=== PATIENT | female | born 1955 | race Hispanic/Latino ===

== ENCOUNTER 2022-05-12 07:28 | Day surgery (SDC) | payer MEDICARE ==
[2022-05-08 10:08] LABS: BASOPHILS % (AUTO) 0.5 % (0.0-5.0); HEMATOCRIT 39.1 % (36-48); LYMPHOCYTES % (AUTO) 23.8 % (21.0-51.0); MEAN CORPUSCULAR HEMOGLOBIN 30.8 pg (27.0-33.0); MEAN CORPUSCULAR VOLUME 90.5 fL (79-99); MONOCYTES % (AUTO) 6.4 % (3.0-13.0); NEUTROPHILS % (AUTO) 67.8 % (40.0-77.0); PLATELET COUNT (AUTO) 325 K/uL (130-400); RED BLOOD CELL COUNT(AUTO) 4.32 MIL/uL (4.00-5.50); WHITE BLOOD COUNT (AUTO) 6.1 K/uL (4.8-10.8)
[2022-05-08 10:17] LABS: PROTHROMBIN TIME 10.9 SEC (9.6-11.6)
[2022-05-08 10:18] LABS: PARTIAL THROMBOPLASTIN TIME 26.2 SEC (26.3-35.5)
[2022-05-08 10:21] LABS: ALBUMIN 4.1 g/dL (3.5-5.0); CREATININE 0.6 mg/dL (0.5-1.5); POTASSIUM 4.2 mmol/L (3.5-5.1); TOTAL PROTEIN, SERUM 7.6 g/dL (6.0-8.3)
[2022-05-08 10:24] LABS: APPEARANCE,URINE CLEAR (CLEAR); BILIRUBIN,URINE NEGATIVE (NEGATIVE); COLOR,URINE LIGHT-YELLOW (YELLOW); GLUCOSE, URINE (UA) 50 mg/dL (NEGATIVE); KETONES,URINE NEGATIVE (NEGATIVE); LEUKOCYTE ESTERASE ,URINE NEGATIVE Leu/uL (NEGATIVE); NITRATE,URINE NEGATIVE (NEGATIVE); OCCULT BLOOD,URINE NEGATIVE (NEGATIVE); PH,URINE 5.5 (5.0-8.0); PROTEIN,URINE NEGATIVE (NEGATIVE); UROBILINOGEN,URINE 0.2 mg/dL (0.2-1.0)
[2022-05-08 10:35] LABS: MUCUS,URINE RARE LPF (None Seen); RBC,URINE 0-1 /HPF (0-1); SQUAMOUS EPITHELIAL CELL,UR RARE /HPF (0-2); WBC,URINE 0-1 /HPF (0-1)
[2022-05-09 08:59] VITALS: BP 156/62
[2022-05-12] VITALS (19 sets, daily range): BP systolic 116–163; BP diastolic 40–61
[~2022-05-12] VITALS: Ht 161.3 cm; Wt 51.4 kg
[~2022-05-12 07:28] MED LIST: LISI5TAB21 PO; METF-444 PO; SEMA2PEN SQ
[2022-05-12] MEDS ORDERED: LACTATED RINGERS 1000ML 1,000 ML IV ONE (08:18)
[2022-05-12] MEDS ORDERED: CEFAZOLIN SODIUM 1 GM VIAL ONE (08:18)
[2022-05-12] MEDS ORDERED: ATOR20TA65 PO (08:53)
[2022-05-12] MEDS ORDERED: BUPIVACAINE/PF 0.25% 30ML VIAL IJ ONE (10:16)
[2022-05-12] MEDS ORDERED: LIDOCAINE PF 100MG/5ML (2%) SYRINGE 5ML ONE ×2 (10:30→10:33)
[2022-05-12] MEDS ORDERED: DEXAMETHASONE SOD PHOSPHATE 10MG/ML 1ML VIAL ONE (10:30)
[2022-05-12] MEDS ORDERED: NEOSTIGMINE 5MG/5ML SYR IV ONE (10:30)
[2022-05-12] MEDS ORDERED: FENTANYL CITRATE PF 50 MCG/1 ML 2ML VIAL ONE (10:30)
[2022-05-12] MEDS ORDERED: SUCCINYLCHOLINE CHLORIDE 20 MG/ML 10 ML VIAL ONE ×2 (10:30→10:31)
[2022-05-12] MEDS ORDERED: GLYCOPYRROLATE 1 MG/5 ML SYRINGE ONE (10:30)
[2022-05-12] MEDS ORDERED: ROCURONIUM 10MG/1ML SYR 10 MG/ML ML ONE (10:30)
[2022-05-12] MEDS ORDERED: CEFAZOLIN SODIUM 2 GM VIAL IV ONE (10:30)
[2022-05-12] MEDS ORDERED: ONDANSETRON 4MG INJ ONE ×2 (10:30→11:39)
[2022-05-12] MEDS ORDERED: PROPOFOL 10 MG/ML 20ML VIAL IV ONE (10:33)
[2022-05-12] MEDS ORDERED: MIDAZOLAM HCL 1 MG/ML 5ML VIAL ONE (10:35)
[2022-05-12] MEDS ORDERED: KETOROLAC 30MG VIAL (30MG/ML) ONE (11:39)
[2022-05-12] MEDS ORDERED: MEPERIDINE-PF 25 MG/ML SYG ONE ×2 (11:40→12:08)
== END 2022-05-12 13:20 | disposition home or self-care (01) ==
LOC: DAH 07:28
PROVIDERS: ATTEND Student in an Organized Health Care Education/Training Program
DX: K80.10 Calculus of gallbladder with chronic cholecystitis without obstruction (principal); I10 Essential (primary) hypertension; E11.43 Type 2 diabetes mellitus with diabetic autonomic (poly)neuropathy; K31.84 Gastroparesis; E66.3 Overweight; E78.5 Hyperlipidemia, unspecified; Z88.6 Allergy status to analgesic agent; Z88.2 Allergy status to sulfonamides; Z79.84 Long term (current) use of oral hypoglycemic drugs; Z98.49 Cataract extraction status, unspecified eye; Z79.01 Long term (current) use of anticoagulants; Z98.890 Other specified postprocedural states; Z79.899 Other long term (current) drug therapy; Z68.22 Body mass index [BMI] 22.0-22.9, adult
CPT/HCPCS: 80053; 85025; 85610; 85730; 87426; 81001; 36415; 71045; 93005; 47562; 82948; A6260; A4663; A6207; J7030; J0690 ×2; J7120; J3010; J3490 ×2; J1100; J2710; J0330 ×2; J2001 ×2; J2250; J2704; J2405 ×2; J1885; J2175 ×2; A6206; C1769 ×3; A4649 ×3; G0168; A4215; A4223; A4222; A4221; A4600

== ENCOUNTER → 2024-04-19 | Outpatient (CLI) | payer OTHER ==
[~2024-04-19] MED LIST changes: +ATOR20TA65 PO
== END | disposition home or self-care (01) ==
LOC: RAH 09:26
PROVIDERS: ATTEND Internal Medicine
DX: R10.9 Unspecified abdominal pain (principal); Z90.49 Acquired absence of other specified parts of digestive tract
CPT/HCPCS: 76700

== ENCOUNTER 2024-10-08 15:01 | Emergency (ER) | payer OTHER ==
[~2024-10-08] VITALS: Ht 160 cm; Wt 54.4 kg
[2024-10-08 15:14] VITALS: TEMP 98.8
[2024-10-08] MEDS: ORPHENADRINE 60MG/2ML IM ONE (17:00)
[2024-10-08] MEDS: ketOROlac 30MG VIAL (30MG/ML) IM ONE (17:00)
--- NOTE | 2024-10-08 17:25 | EKG ---
[facility] Test Date: 2024-10-08 Test Time: 15:25:11 Pat Name: TATI GATICA Department: ED Room: Gender: F Inspector General: [id number] : 1955 Requested By: CHRISTIAN GONZALEZ Order Number: [id number] Reading MD: Neto Kilgore Measurements Intervals [place] Rate: 79 P: 47 NE: 141 QRS: -6 QRSD: 78 T: 49 QT: 351 QTc: 404 Interpretive Statements Sinus rhythm Probable left atrial enlargement Low voltage, precordial leads Compared to ECG 05/08/2022 08:48:14 Low QRS voltage now present Electronically Signed On 10-09-2024 14:56:15 SUPERVISOR CALIBRATION by Neto Kilgore Please click the below link to view image of tracing.
[2024-10-08 17:31] LABS: BASOPHILS # (AUTO) 0.06 K/uL (0.00-0.20); BASOPHILS % (AUTO) 0.5 % (0.0-5.0); EOSINOPHILS # (AUTO) 0.07 K/uL (0.00-0.70); EOSINOPHILS % (AUTO) 0.6 % (0.0-8.0); HEMATOCRIT 37.4 % (36-48); IMMATURE GRANULOCYTE ABSOLUTE 0.05 K/uL (0-1); LYMPHOCYTES # (AUTO) 1.5 K/uL (1.0-4.8); LYMPHOCYTES % (AUTO) 12.2 % (21.0-51.0); MEAN CORPUSCULAR HGB CONC 32.6 g/dL (32.0-36.0); MEAN CORPUSCULAR VOLUME 92.1 fL (79-99); MONOCYTES # (AUTO) 0.7 K/uL (0.1-1.0); MONOCYTES % (AUTO) 5.7 % (3.0-13.0); NEUTROPHILS # (AUTO) 10.1 K/uL (1.8-7.7); NEUTROPHILS % (AUTO) 80.6 % (40.0-77.0); PLATELET COUNT (AUTO) 310 K/uL (130-400); RED BLOOD CELL COUNT(AUTO) 4.06 MIL/uL (4.00-5.50); RED CELL DISTRIBUTION WIDTH 12.3 % (11.0-15.5); WHITE BLOOD COUNT (AUTO) 12.5 K/uL (4.8-10.8)
[2024-10-08 17:39] LABS: CREATININE 0.8 mg/dL (0.5-1.0); POTASSIUM 4.4 mmol/L (3.5-5.1)
--- NOTE | 2024-10-08 17:44 | ERN ---
General Chief Complaint: Back Pain-No Injury Stated Complaint: LEFT SHOULDER PAIN Source: patient History of Present Illness Initial Comments PATIENT IS A 68-YEAR-OLD FEMALE COMING IN TO BE EVALUATED FOR LEFT UPPER BACK PAIN. PATIENT STATES THAT THE PAIN BEGAN THREE DAYS AGO. HER HAS BEEN STATES THAT PATIENT HAS BEEN DOING SOME GARDENING PREVIOUSLY AND COULD BE ASSOCIATED WITH A IT. Allergies: Coded Allergies: codeine (Unverified Allergy, Unknown, 05/09/22) Uncoded Allergies: sulf 10 (Allergy, Unknown, 05/09/22) Home Meds Reported Medications Atorvastatin Calcium (Atorvastatin Calcium) 20 Mg Tablet, 20 MG PO HS, TAB 05/12/22 Lisinopril (Lisinopril) 5 Mg Tablet, 5 MG PO AM, TAB 05/09/22 Semaglutide (Ozempic) 2 Mg/0.75 Ml Pen.injctr, 2 MG SQ weekly 05/09/22 Metformin HCl (Metformin HCl) 500 Mg Tablet, 500 MG PO BID, TAB 05/09/22 Past Medical History Past Medical History: Diabetes-Type II Past Surgical History: Hysterectomy, Tonsillectomy, Cholecystectomy Surgical History Other: EYE, ROS Dictation CONSTITUTIONAL: NO CHILLS, NO FEVER, NO WEAKNESS, NO DIAPHORESIS, NO MALAISE. HEAD/FACE: NO SIGNS OF TRAUMA. EENT: NO EYE PAIN, NO BLURRED VISION, NO TEARING, NO DOUBLE VISION, NO EAR PAIN, NO EAR DISCHARGE, NO NOSE PAIN, NO NASAL CONGESTION, NO THROAT PAIN, NO THROAT SWELLING, NO MOUTH PAIN. RESPIRATORY: NO COUGH, NO ORTHOPNEA, NO SOB, NO STRIDOR, NO WHEEZING. CARDIOVASCULAR: NO CHEST PAIN, NO EDEMA, NO PALPITATIONS, NO SYNCOPE. GASTROINTESTINAL/ABDOMINAL: NO ABDOMINAL PAIN, NO CONSTIPATION, NO DIARRHEA, NO NAUSEA, NO VOMITING. GENITOURINARY: NO ABNORMAL DISCHARGE, NO DYSURIA, NO FREQUENT URINATION, NO HEMATURIA. NO COMPLAINTS OF PAIN IN THE GENITALS. MUSCULOSKELETAL: BACK PAIN, NO GOUT, NO JOINT PAIN, NO JOINT SWELLING, NO MUSCLE PAIN, NO MUSCLE STIFFNESS, NO NECK PAIN. INTEGUMENTARY: NO CHANGE IN COLOR, NO CHANGE IN HAIR/NAILS, NO DRYNESS, NO LESION, NO LUMPS, NO RASH. NEUROLOGICAL/PSYCH: NO ANXIETY, NOT DEPRESSED, NO EMOTIONAL PROBLEM, NO HEADACHE, NO NUMBNESS, NO PRE-EXISTING DEFICIT, NO HISTORY OF SEIZURES, NO TREMORS, NO WEAKNESS. HEMATOLOGIC/LYMPHATIC: NOT ANEMIC, NO HISTORY OF BLOOD CLOTS, NO APPARENT BLEEDING, NO BRUISING, GLANDS NOT SWOLLEN. ALL SYSTEMS NEGATIVE, EXCEPT NOTED. Physical Exam Physical Exam Dictation VITAL SIGNS: REVIEWED. GENERAL APPEARANCE: ALERT, ORIENTED X3, NO ACUTE DISTRESS, OBESE. HEAD AND FACE: NON-TRAUMATIC. EYES: PERRL, PINK CONJUNCTIVAS, EYELID NO TRAUMA, ANTERIOR CHAMBER CLEAR. EARS: PINNAS INTACT AND NO SIGNS OF TRAUMA OR ERYTHEMA. EAR CANALS CLEAR AND NO DISCHARGE. TMS NO ERYTHEMA. NOSE: NO DISCHARGE, NO BLEEDING. OROPHARYNX: MOUTH NORMAL, TEETH NO CARIES, TONGUE PINK. PHARYNX CLEAR, NO ERYTHEMA. TONSILS NO EXUDATES, NO ABSCESSES NOTED. MUCOUS MEMBRANE MOIST. NECK: SUPPLE, NON-TENDER, NO THYROMEGALY, NO MASSES, NO JVD, NO BRUITS. BREAST: DEFERRED. CHEST: NO TENDERNESS, NO CREPITUS, NO PARADOXICAL MOVEMENT, NO RETRACTIONS. LUNGS: CLEAR, WELL-VENTILATED, SYMMETRIC, NO RALES, NO WHEEZING, NO RHONCHI, NO STRIDOR, GOOD BREATH SOUNDS BILATERALLY. HEART: REGULAR RATE, REGULAR RHYTHM, NO MURMUR, NO GALLOPS. VASCULAR: NO PERIPHERAL EDEMA. ABDOMEN: SOFT, POSITIVE BOWEL SOUNDS, NONDISTENDED, NO GUARDING, NONTENDER, NO REBOUND, NO MASSES NO HEPATOMEGALY, NO SPLENOMEGALY, NO REINOSO'S SIGN, NO HERNIAS. RECTAL: DEFERRED. GENITAL: DEFERRED. NEUROLOGICAL: NORMAL SPEECH, GROSS MOTOR FUNCTION INTACT, GROSS SENSORY FUNCTION INTACT. MUSCULOSKELETAL: NECK NONTENDER, FULL RANGE OF MOTION, BACK NONTENDER, FULL RANGE OF MOTION. EXTREMITIES: NONTENDER, FULL RANGE OF MOTION. LEFT SUBSCAPULARIS MUSCLE TENDERNESS ON PALPATION, PALPATING THE SUBSCAPULARIS MUSCLE REPRODUCES THE PAIN. SKIN: COLOR PINK, DRY, NO TURGOR, NO RASH, NO LACERATIONS, NO ABRASIONS, NO CONTUSIONS. LYMPHATICS: DEFERRED. Results Laboratory and Microbiology Lab and Micro Result Laboratory Tests Test 10/08/24 16:37 White Blood Count 12.5 K/uL (4.8-10.8) H Red Blood Count 4.06 MIL/uL (4.00-5.50) Hemoglobin 12.2 g/dL (12.0-16.0) Hematocrit 37.4 % (36-48) Mean Corpuscular Volume 92.1 fL (79-99) Mean Corpuscular Hemoglobin 30.0 pg (27.0-33.0) Mean Corpuscular Hemoglobin Concent 32.6 g/dL (32.0-36.0) Red Cell Distribution Width 12.3 % (11.0-15.5) Platelet Count 310 K/uL (130-400) Mean Platelet Volume 9.9 fL (7.5-10.5) Immature Granulocyte % (Auto) 0.4 % (0-1) Neutrophils (%) (Auto) 80.6 % (40.0-77.0) H Lymphocytes (%) (Auto) 12.2 % (21.0-51.0) L Monocytes (%) (Auto) 5.7 % (3.0-13.0) Eosinophils (%) (Auto) 0.6 % (0.0-8.0) Basophils (%) (Auto) 0.5 % (0.0-5.0) Neutrophils # (Auto) 10.1 K/uL (1.8-7.7) H Lymphocytes # (Auto) 1.5 K/uL (1.0-4.8) Monocytes # (Auto) 0.7 K/uL (0.1-1.0) Eosinophils # (Auto) 0.07 K/uL (0.00-0.70) Basophils # (Auto) 0.06 K/uL (0.00-0.20) Absolute Immature Granulocyte (auto 0.05 K/uL (0-1) Nucleated Red Blood Cells 0.0 % (0.0-0.19) Sodium Level 137 mmol/L (136-145) Potassium Level 4.4 mmol/L (3.5-5.1) Chloride Level 100 mmol/L (101-111) L Carbon Dioxide Level 29 mmol/L (21-32) Blood Urea Nitrogen 22 mg/dL (7-18) H Creatinine 0.8 mg/dL (0.5-1.0) Glomerular Filtration Rate Calc 79 mL/min (>90) Random Glucose 147 mg/dL (70-105) H Total Calcium 9.1 mg/dL (8.5-10.1) Total Creatine Kinase 57 U/L (21-232) Troponin I High Sensitivity < 4 ng/L (4-50) L B-Type Natriuretic Peptide 15 pg/mL (0-100) Labs Reviewed?: Yes EKG/XRAY/US/CT/MRI EKG Comment 10/08/2024 TIME 3:25 P.M. VENTRICULAR RATE [address] WAVE ELEVATION OR DEPRESSION WA 141 X-RAY Comment [facility] [address] [place] [address] IMAGING REPORT Signed PATIENT: TATI GATICA MR#: [id number] : 1955 SEX: F AGE: 68 LOCATION: [facility] ORDER 26 STATUS: REG ER REPORT#: [id number] SERVICE 25 REASON: left mid back pain ORDERING PHYSICIAN: CHRISTIAN GONZALEZ PROCEDURE: CXR1VW - CHEST 1VW INDICATION: left mid back pain TECHNIQUE: CHEST 1VW COMPARISON: 05/08/2022 FINDINGS AND IMPRESSION: No acute consolidation or pleural effusion. Cardiac silhouette is within normal limits. Mild degenerative changes of the spine. The visualized upper abdomen appears unremarkable. DICTATED BY: MARINA DIOR MD DATE: 10/08/241752 ELECTRONICALLY SIGNED BY: MARINA DIOR MD DATE: 10/08/241755 [facility] MDM: DIFFERENTIAL DIAGNOSIS: SUBSCAPULARIS MUSCLE PAIN, MUSCLE STRAIN PATIENT IS A 68-YEAR-OLD FEMALE COMING IN TO BE EVALUATED FOR SUBSCAPULARIS MUSCLE PAIN. UPON EVALUATION CARDIAC WORKUP NEGATIVE FOR ACUTE FINDINGS. PATIENT RECEIVED SOME ANTISPASMODICS ANTI-INFLAMMATORY STATES SHE FEELS MUCH BETTER. PATIENT WILL BE DISCHARGED IN STABLE CONDITION WITH A DIAGNOSIS OF SUBSCAPULARIS MUSCLE STRAIN ED Course Orders Procedure Category Date Status Time 12 Lead Ekg Tracing- EKG 10/08/24 Complete Technical 16:26 Cbc With Differential LAB 10/08/24 Complete 16:26 Basic Metabolic Panel LAB 10/08/24 Complete 16:26 B-Type Natriuretic LAB 10/08/24 Complete Peptide 16:26 Creatine Kinase, Total LAB 10/08/24 Complete 16:26 Troponin I High LAB 10/08/24 Complete Sensitivity 16:26 Chest 1vw RAD 10/08/24 Resulted 16:26 Orphenadrine Citrate PHA 10/08/24 Complete (Norflex) 17:00 Ketorolac PHA 10/08/24 Complete Tromethamine 30mg/Ml 17:00 Current Medications Medications (Trade) Dose Ordered Sig/Afua Route PRN Reason Start Time Stop Time Status Last Admin Dose Admin Ketorolac Tromethamine (toRADol) 30 mg ONCE ONCE IM 10/08/24 17:00 10/08/24 17:01 DC 10/08/24 17:00 Orphenadrine Citrate (Norflex) 60 mg ONCE ONCE IM 10/08/24 17:00 10/08/24 17:01 DC 10/08/24 17:00 Vital Signs Date Time Temp Pulse Resp B/P (MAP) Pulse Ox O2 Delivery O2 Flow Rate FiO2 10/08/24 15:14 98.8 87 16 145/72 100 Room Air 0 DX & DISP Disposition: Discharge Departure Impression: Primary Impression: Subscapularis muscle sprain Condition: Stable Scripts Naproxen (Naproxen) 375 Mg Tablet.dr 375 MG PO BID for 7 Days, #14 TAB Prov: CHRISTOPHER PEREZ MD 10/08/24 Methocarbamol (Robaxin) 750 Mg Tab 1 TAB PO BID for 7 Days, #14 TAB 0 Refills Prov: CHRISTOPHER PEREZ MD 10/08/24 Additional Instructions: FOLLOW-UP WITH PRIMARY CARE PROVIDER IN 1 TO 2 DAYS. TAKE MEDICATIONS DIRECTED HERE IN THE EMERGENCY ROOM. OKAY TO CONTINUE HOME MEDICATIONS UNLESS OTHERWISE DISCUSSED DURING YOUR VISIT IN THE EMERGENCY ROOM TODAY. RETURN TO YOUR NEAREST EMERGENCY ROOM IF SYMPTOMS WORSEN OR IF THERE IS NO IMPROVEMENT. CALL 911 IF YOU NEED IMMEDIATE ASSISTANCE. TAKE TYLENOL [id number] NEEDED AND IF NO CONTRAINDICATIONS ARE PRESENT. INCREASE ORAL HYDRATION. A WOUND CULTURE OR URINE CULTURE WAS ORDERED HERE IN THE EMERGENCY ROOM DEPARTMENT PLEASE FOLLOW-UP WITH PRIMARY CARE PROVIDER AND ADVISE THEM TO GET REPEAT PORTS FROM OUR FACILITY. IF YOU HAD ANY ILIANA WRAP/SPLINTS THAT WERE APPLIED HERE, PLEASE DO NOT REMOVE THEM UNTIL YOU SEE YOUR PRIMARY CARE OR SPECIALTY. REFERRALS: Referrals: HUSSAIN GRANADOS MD (PCP) Time of Disposition: 18:11 CHRISTOPHER PEREZ MD Oct 08, 2024 17:44
--- NOTE | 2024-10-08 17:56 | HMCIMG ---
INDICATION: left mid back pain TECHNIQUE: CHEST 1VW COMPARISON: 05/08/2022 FINDINGS AND IMPRESSION: No acute consolidation or pleural effusion. Cardiac silhouette is within normal limits. Mild degenerative changes of the spine. The visualized upper abdomen appears unremarkable.
[2024-10-08 17:58] LABS: B-TYPE NATRIURETIC PEPTIDE 15 pg/mL (0-100)
[2024-10-08] MEDS ORDERED: METH-662 PO (18:13)
[2024-10-08] MEDS ORDERED: NAPR-1505 PO (18:13)
[2024-10-08 18:35] VITALS: BP 128/71; PULSE 71; RESP 18; O2SAT 98
== END 2024-10-08 18:45 | disposition home or self-care (01) ==
LOC: EDH 15:01
DX: S46.912A Strain of unspecified muscle, fascia and tendon at shoulder and upper arm level, left arm, initial encounter (principal); E11.9 Type 2 diabetes mellitus without complications; Z79.84 Long term (current) use of oral hypoglycemic drugs; Z79.85 Long-term (current) use of injectable non-insulin antidiabetic drugs; Z88.5 Allergy status to narcotic agent; Z90.49 Acquired absence of other specified parts of digestive tract; Z90.710 Acquired absence of both cervix and uterus; X58.XXXA Exposure to other specified factors, initial encounter; Y93.89 Activity, other specified; Y92.89 Other specified places as the place of occurrence of the external cause; Y99.8 Other external cause status
CPT/HCPCS: 99285; 71045; 82550; 84484; 80048; 83880; 85025; 36415; 96372 ×2; 93005; J1885; J2360